=== PATIENT | female | born 1975 | race American Indian/Alaskan Native ===

== ENCOUNTER 2021-05-04 08:53 | Emergency (ER) | payer OTHER, BC ==
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
== END 2021-05-04 12:58 | disposition home or self-care (01) ==
LOC: ED 08:53
DX: M54.2 Cervicalgia (principal); Z53.21 Procedure and treatment not carried out due to patient leaving prior to being seen by health care provider
CPT/HCPCS: 72040; 72070; 72170; 99283